=== PATIENT | female | born 1960 | race Caucasian/White ===

== ENCOUNTER 2017-10-09 09:07 | Emergency (ER) | payer BC ==
[~2017-10-09] VITALS: Ht 152.4 cm; Wt 40.8 kg
--- NOTE | 2017-10-09 09:07 | NUR ---
PT PLACED IN BED 4, REPORT ENDORSED CRISTINA MISHRA
--- NOTE | 2017-10-09 09:10 | NUR ---
Pt ambulated into the ED c/o / dull abd pain and general weakness x 6 days. Pt states she had botox 8 days ago and has been experiencing body aches and "heat rash on lower back." No deformities noted on abdomen or back. Pt reports feeling SOB x2days. Pt speaking in full sentences, breathing even and unlabored. at bedside. No other injuries/complaints per pt/noted.
[2017-10-09] MEDS ORDERED: NACL 0.9% 1,000 ML IV ONE (09:15)
[2017-10-09] MEDS ORDERED: IPRATROPIUM/ALBUTEROL SULFATE 3 ML AMPUL.NEB INH ONE (09:15)
[2017-10-09] MEDS ORDERED: DEXAMETHASONE SOD PHOSPHATE 10 MG/ML VIAL IVP ONE (09:15)
[2017-10-09 09:20] VITALS: BP_SYST 105
--- NOTE | 2017-10-09 10:15 | NUR ---
ER Dr. Mcnair at bedside examining patient.
--- NOTE | 2017-10-09 11:20 | NUR ---
[place] provided to pt. Pt laying comfortably in bed with no noted signs of distress. at bedside. Will continue to monitor.
--- NOTE | 2017-10-09 12:16 | NUR ---
Patient given written and verbal discharge instructions and verbalizes understanding. ER MD Mcnair discussed with patient the results and treatment provided. Patient in stable condition. ID arm band removed. Rx of Proventil given. Patient educated on pain management and to follow up with PMD. Pain Scale 0. Opportunity for questions provided and answered.
[2017-10-09 12:18] VITALS: BP_SYST 110
== END 2017-10-09 12:18 | disposition home or self-care (01) ==
LOC: SED 09:07
DX: J06.9 Acute upper respiratory infection, unspecified (principal)
CPT/HCPCS: 71010; 99283